=== PATIENT | female | born 1995 | race Caucasian/White ===

== ENCOUNTER 2017-05-19 23:04 | Emergency (ER) | payer OTHER ==
[2017-05-19] MEDS ORDERED: methylPREDNISolone Sod Succ/PF 125 MG/2 ML VIAL ONE (23:32)
== END 2017-05-19 23:54 | disposition home or self-care (01) ==
LOC: NAV ERS 23:04
DX: J06.9 Acute upper respiratory infection, unspecified (principal); K90.0 Celiac disease; Z86.73 Personal history of transient ischemic attack (TIA), and cerebral infarction without residual deficits; Z79.82 Long term (current) use of aspirin
CPT/HCPCS: 96372; J2930